=== PATIENT | female | born 1965 | race Caucasian/White ===

== ENCOUNTER 2017-07-22 17:54 | Emergency (ER) | payer MEDICAID ==
[~2017-07-22] VITALS: Ht 149.9 cm; Wt 65.1 kg
[2017-07-22] MEDS ORDERED: IBUP-653 PO (18:58)
[2017-07-22] MEDS ORDERED: TROS60CA3 PO (18:58)
[2017-07-22] MEDS ORDERED: AMITRIPTYLINE (18:58)
[2017-07-22] MEDS ORDERED: LORazepam 1MG TABLET PO ONE (19:30)
[2017-07-22 19:45] LABS: BASOPHILS # (AUTO) 0.06 x10^3/uL (0-0.1); BASOPHILS % (AUTO) 1 % (0-1); EOSINOPHILS # (AUTO) 0.02 x10^3/uL (0-0.4); EOSINOPHILS % (AUTO) 0 % (1-7); LYMPHOCYTES % (AUTO) 23 % (22-44); MD NO; MEAN CORPUSCULAR HEMOGLOBIN 32.1 pg (27.0-34.8); MEAN CORPUSCULAR HGB CONC 34.7 g/dL (32.4-35.8); MEAN CORPUSCULAR VOLUME 92.5 fL (80-100); MEAN PLATELET VOLUME 8.9 fL (7.4-10.4); MONOCYTES # (AUTO) 0.57 x10^3/uL (0.2-0.8); MONOCYTES % (AUTO) 6 % (2-9); NEUTROPHILS % (AUTO) 71 % (42-75); PLATELET COUNT 396 x10^3/uL (130-400); RED BLOOD COUNT 4.73 x10^6/uL (3.82-5.3); RED CELL DISTRIBUTION WIDTH 13.8 % (9.6-15.2)
[2017-07-22] MEDS ORDERED: LORazepam 1MG TABLET ONE (19:51)
[2017-07-22 19:58] LABS: ALBUMIN 3.9 g/dL (3.4-5.0); ANION GAP 9 mmol/L (5-15); CALCIUM 8.4 mg/dL (8.5-10.1); CHLORIDE 107 mmol/L (98-107); CREATININE 0.99 mg/dL (0.55-1.02)
[2017-07-22 20:02] LABS: TROPONIN I < 0.015 ng/mL (0.000-0.045)
[2017-07-22 20:13] VITALS: BP 145/94
== END 2017-07-22 20:50 | disposition home or self-care (01) ==
LOC: ED 20:15
DX: R07.89 Other chest pain (principal); F43.22 Adjustment disorder with anxiety
CPT/HCPCS: 36415; 71045; 80048; 82040; 84484; 85025; 93005; 99285